=== PATIENT | male | born 1975 | race Caucasian/White ===

== ENCOUNTER 2018-10-20 22:27 | Observation (INO) ==
[2018-10-20] MEDS ORDERED: IOPAMIDOL 100 ML BOTTLE IV ONE (22:28)
[2018-10-20] MEDS ORDERED: HYDROmorphone 2 MG/ML VIAL IV PRN (23:13)
[2018-10-20] MEDS ORDERED: KETOROLAC 30 MG/ML VIAL IV ONE (23:13)
[2018-10-20] MEDS ORDERED: 0.9 % SODIUM CHLORIDE 1,000 ML IV ONE (23:13)
[2018-10-20 23:47] LABS: Basophils # (Auto) 0 K/mcL (0.0-0.3); Basophils % (Auto) 0.3 % (0.0-2.0); Eosinophils # (Auto) 0.2 K/mcL (0.0-0.7); Eosinophils % (Auto) 1.2 % (0.0-7.0); Granulocytes % (Auto) 70.9 % (38.0-78.0); Hemoglobin 15.9 g/dL (13.5-16.5); Lymphocytes # (Auto) 3.5 K/mcL (1.5-4.8); Lymphocytes % (Auto) 21.8 % (15.5-49.0); Mean Corpuscular HGB Conc 32.4 g/dL (31.0-36.0); Monocytes # (Auto) 0.9 K/mcL (0.1-0.9); Monocytes % (Auto) 5.8 % (1.0-12.0); Platelet Count 295 K/mcL (140-440); Red Cell Distribution Width 12.8 % (11.5-14.5); WBC 15.9 K/mcL (4.5-11.0)
[2018-10-21 00:08] LABS: ALT/SGPT 68 U/l (0-40); AST/SGOT 37 U/l (0-37); Albumin 3.8 gm/dL (3.2-5.2); Albumin/Globulin Ratio 1.1 (1.0-2.3); Alkaline Phosphatase 103 U/L (39-117); Bilirubin,Total 0.6 mg/dL (0.0-1.0); Blood Urea Nitrogen 22 mg/dl (6-20); C-Reactive Protein 1.8 mg/dl (0.0-0.8); Calcium 9.1 mg/dl (8.6-10.4); Carbon Dioxide 21 mmol/L (22-30); Chloride 96 mmol/L (96-108); Globulin 3.6 gm/dL (2.2-3.7); Glomerular Filtration Rate 93; Glucose 395 mg/dL (70-105); Potassium 4.3 mmol/L (3.3-5.1); Sodium 131 mmol/L (133-145)
[2018-10-21 00:52] LABS: Erythrocyte Sedimentation Rate 20 mm/hr (0-15)
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
[2018-10-21] MEDS ORDERED: VANCOMYCIN 1,000 MG in 0.9 % SODIUM CHLORIDE 250 ML IV ONE (00:58)
[2018-10-21] MEDS ORDERED: LEVOFLOXACIN 500 MG/100 ML BAG IV ONE (00:58)
[2018-10-21] MEDS ORDERED: 0.9 % SODIUM CHLORIDE 1,000 ML IV ONE (00:59)
[2018-10-21] MEDS ORDERED: INSULIN REGULAR, HUMAN 1 UNIT/0.01 ML UNIT IV ONE (00:59)
[2018-10-21 01:44] LABS: Appearance,Urine CLEAR; Bacteria,Urine 0 /hpf (0); Bilirubin,Urine NEG (NEG); Color,Urine YELLOW; Culture Indicated,Urine NO; Glucose,Urine (UA) >=500 mg/dL (NEG); Ketones,Urine NEG (NEG); Leukocyte Esterase,Urine NEG /uL (NEG); Mucus,Urine FEW /hpf (0); Nitrate,Urine NEG (NEG); Protein,Urine NEG (NEG); Urine Blood NEG mg/dL (<0.03); Urine RBC < 1 /hpf (0-1); Urine Squamous Epithelial Cell < 1 /hpf (0-4); Urine WBC 1 /hpf (0-4); Urobilinogen,Urine NEG (NEG)
[2018-10-21] MEDS ORDERED: 0.9 % SODIUM CHLORIDE 1,000 ML IV SCH ×4 (02:30→11:44)
[2018-10-21] MEDS ORDERED: NALOXONE HCL 0.4 MG/ML VIAL IV PRN ×2 (02:57→11:44)
[2018-10-21] MEDS ORDERED: ONDANSETRON 4 MG/2 ML VIAL IV PRN ×2 (02:57→11:44)
[2018-10-21] MEDS ORDERED: oxyCODONE/APAP 5/325MG TABLET PO PRN ×2 (02:57→11:44)
[2018-10-21] MEDS ORDERED: ACETAMINOPHEN 325 MG TABLET PO PRN ×3 (03:06→11:44)
[2018-10-21] MEDS: CEFEPIME 1 GM VIAL IV SCH ×3 (05:55→21:24)
--- NOTE | 2018-10-21 08:44 | XRay Report ---
HISTORY: Leukocytosis and sepsis FINDINGS: The lungs are clear and normally expanded. There is no pleural effusion or adenopathy. The heart size and pulmonary vasculature are normal. Patient has stimulator electrode wires in the cervical spine. The power pack is in the posterior lateral aspect of the right upper abdomen. There is a mild kyphosis and minor arthritis in the thoracic spine. IMPRESSION: No evidence of pneumonia or acute abnormality Interpreted and Authenticated by: Luis A Aguilar 10/21/18
--- NOTE | 2018-10-21 08:45 | Internal Med History&Physical ---
Medical - H&P: HPI Patient information: Note initiated : 10/21/18 at 8:42 am Service Date, if different from initiated Date: [] Patient: Kurtis Roa a 43 y/o M admitted on 10/21/18 for low back pain. Chief Complaint: [] History of present illness: Mr. Roa is a 43 year old M Presents to the ED with acute on chronic back pain with radiation down to his right side to feet. Is taking naproxen and muscle relaxer but is been off narcotics for several months. He felt that this back pain increased after seizure 3 days ago. No bowel or bladder incontinence. 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 He was treated for pain control in the ED. However, because of his tachycardia and and hypotension, apparently his systolic went down to the 90s but I do not see that recorded. Because of this there is concern for infection possibly discitis and thus admission was requested for further evaluation. ESR was low and procalcitonin was low. MRI unavailable and a CT lumbar with contrast was ordered which did not show any osteo-or abscess. His pain is a sharp shooting pain down the right lateral aspect of his legs to his toe Toradol and Dilaudid helped in the ED. States he felt a little bit feverish off and on but otherwise no complaints. Patient states that he gets complex migraines with seizure-like activity and this usually happens in the middle the night, this happened 3 nights ago when he woke up he had increased back pain. Follows with Dr. Colunga for his migraines. His blood glucose was elevated but he had ice cream several hours prior to the ED visit Review of Systems: Pertinent positives as above. Denies headache/chills/nausea/vomiting/chest or abdominal pain/cough/dyspnea/diarrhea. Remaining 10 point review of system reviewed negative Medical - H&P: PMH Medical history: Medical History (Last Updated 05/23/18 @ 13:55 by Bethany May) Hypothyroidism (Chronic) Vitamin D deficiency (Chronic) Neuropathy (Chronic) Back pain (Chronic) Neck pain (Chronic) Right hand weakness (Chronic) Lumbar disc herniation (Chronic) Thoracic disc herniation (Chronic) Herniated cervical disc (Chronic) Traumatic brain injury (Chronic) Hypertension (Chronic) Depression (Chronic) Convulsions/seizures (Chronic) Diabetes mellitus, type II (Chronic) Contusion (Acute) Migraine headache with aura (Chronic) Toothache (Chronic) Oral thrush (Acute) Strain of thoracic region (Acute) Degenerative disc disease, thoracic (Acute) Past Surgical History (Last Updated 05/23/18 @ 13:59 by Bethany May) Cervical spine fusion Facial fracture repair Stimulator Family History (Last Updated 05/23/18 @ 13:57 by Bethany May) Mother Anemia Diabetes Family/Other Colon cancer, Onset Age: 43 Grandmother History of back surgery Grandfather Heart valve disorder Social History (Last Updated 05/23/18 @ 13:58 by Bethany May) Uses a cane and occasionally a wheelchair Medical - H&P: Meds Home Medications Medication Instructions Recorded Confirmed Type Levothyroxine 50 mcg PO DAILY 01/10/15 10/21/18 History Methocarbamol [Robaxin] 1 - 2 tab PO Q8H PRN #60 tablet 04/26/16 10/21/18 Rx Acetaminophen W/Codeine #3 04/22/18 History [Tylenol #3] Atorvastatin [Lipitor] 20 mg PO HS 04/22/18 10/21/18 History Bisacodyl [Dulcolax] 5 mg PO BID PRN 04/22/18 10/21/18 History Fish Oil 360 mg PO DAILY 04/22/18 10/21/18 History Lisinopril [Zestril] 10 mg PO DAILY 04/22/18 10/21/18 History Multi [place] 04/22/18 History Naproxen 04/22/18 History Omeprazole [PriLOSEC] 20 mg PO BIDAC 04/22/18 10/21/18 History SUMAtriptan SUCCINATE 04/22/18 History Sennosides 8.6 mg PO BID 04/22/18 10/21/18 History Verapamil HCl 440 mg PO DAILY 04/22/18 10/21/18 History glipiZIDE 5 mg PO HS 04/22/18 10/21/18 History Cholecalciferol (Vitamin D3) 50,000 unit PO DAILY 10/21/18 10/21/18 History [Vitamin D3] Docusate Sodium [Stool Softener] 250 mg PO BID 10/21/18 10/21/18 History Gabapentin 600 mg PO HS 10/21/18 10/21/18 History Insulin Glargine,Hum.rec.anlog 20 unit SQ DAILY 10/21/18 10/21/18 History [Lantus Solostar] Percocet 7.5-325 mg Tablet 7.5 mg PO Q6HP PRN 10/21/18 10/21/18 History glipiZIDE [Glucotrol] 10 mg PO DAILY 10/21/18 10/21/18 History sitaGLIPtin [Januvia] 100 mg PO DAILY 10/21/18 10/21/18 History Allergies Allergy/AdvReac Type Severity Reaction Status Date / Time Penicillins Allergy Severe Anaphylaxis Verified 10/20/18 22:32 Erythromycin Base Allergy Hives Verified 10/20/18 22:32 Medical - H&P: Exam - Constitutional Vitals: Temp Pulse Resp BP Pulse Ox 98.2 F 87 16 114/75 95 10/21/18 02:38 10/21/18 08:16 10/21/18 05:03 10/21/18 08:16 10/21/18 08:16 Exam: General: Alert, Awake, No acute Distress Eyes/N/T: EOMI, PEERL, Head/Neck: neck supple, normocephalic atraumatic CV: RRR, No murmurs, normal s1/s2 Pulm: Clear b/l, no wheezing/rhonchi/rales Abd: soft, nontender, +BS x4 Ext: no clubbing/cyanosis/edema Neuro: Alert, no focal deficits, moves all extremities, CN 2-12 grossly intact, symmetrical strength b/l upper/lower, decreased sensation in his legs more on the right which is typical for him skin: warm/dry Medical - H&P: Reslt - Labs CBC & Chem 7: 10/20/18 23:20 10/20/18 23:20 Labs: Short CBC 10/20/18 Range/Units 23:20 WBC 15.9 H (4.5-11.0) K/mcL Hgb 15.9 (13.5-16.5) g/dL Hct 49.0 (41.0-55.0) % Plt Count 295 (140-440) K/mcL BMP 10/20/18 23:20 Sodium 131 L Potassium 4.3 Chloride 96 Carbon Dioxide 21 L BUN 22 H Creatinine 1.0 Glucose 395 H Calcium 9.1 Liver Function 10/20/18 Range/Units 23:20 Total Bilirubin 0.6 (0.0-1.0) mg/dL AST 37 (0-37) U/l ALT 68 H (0-40) U/l Alkaline Phosphatase 103 (39-117) U/L Albumin 3.8 (3.2-5.2) gm/dL Urine 10/21/18 Range/Units 00:30 Urine Color Yellow Urine Appearance Clear Urine pH 5.0 (5.0-9.0) Ur Specific [place] 1.040 H (1.000-1.035) Urine Protein Neg (NEG) mg/dL Urine Glucose (UA) >=500 A (NEG) mg/dL Medical - H&P: A/P - Narrative A/P Narrative: A: *Intractable low back pain, acute on chronic with right radiculopathy: Secondary to complex migraine seizure-like activity -Infectious work-up negative; manual differential no bands, low PCT/ESR, afebrile, CT with contrast of the spine no evidence of abscess or osteo- *History of complex migraines with seizure-like activity: *DM w/Hyperglycemia: 395 on admit from dietary noncompliance during the evening *Hyponatremia: *Volume depletion: *Neuropathy: *Hypothyroidism: *HTN/HLD: *GERD: * P: -Pain control/muscle relaxers/toradol/lidoderm -PT/OT - -Continue home blood pressure medications -Continue home glipizide with sliding scale and clarify home insulin -Continue home levothyroxine -ppx: Lovenox/home PPI
--- NOTE | 2018-10-21 08:50 | Cat Scan Report ---
CLINICAL INFORMATION: Low back pain radiating to right flank COMPARISON: 09/13/12 TECHNIQUE: The abdomen was imaged without oral or IV contrast, scanning from the diaphragm to the symphysis pubis. Sagittal and coronal reformats were created. Radiation exposure was limited using dose reduction technology. FINDINGS: There is mild dependent atelectasis posteriorly in the right lower lobe. Liver is mildly enlarged and there is mild generalized fatty infiltration. There is no evidence of a mass. The gallbladder is contracted but there are no stones and no apparent thickening of the wall. The bile ducts are nondilated. The spleen is normal in size and homogeneous. There is no evidence of a mass or inflammation the pancreas. The adrenals and kidneys are normal. There is no evidence of a kidney stone or hydronephrosis. The aorta is normal in caliber and there is no plaque formation. There are a few very small lymph nodes at the rather than mesentery which are 6 mm smaller area The bowel gas pattern is normal except for a few small scattered noninflamed diverticula in the sigmoid colon. The appendix is noninflamed. The urinary bladder is normally distended and appears normal. Prostate and seminal vesicles also appear normal. Comparison with the prior exam shows no significant change. IMPRESSION: Hepatomegaly with fatty infiltration of the liver. No acute abnormality Interpreted and Authenticated by: Luis A Aguilar 10/21/18
--- NOTE | 2018-10-21 08:55 | Cat Scan Report ---
CLINICAL INFORMATION: Severe low back pain and leukocytosis COMPARISON: X-ray on 10/15/17 TECHNIQUE: The spine was imaged in axial plane without contrast. Sagittal and coronal reformats were created. The radiation exposure was limited using dose reduction technology. FINDINGS: Patient has a transitional vertebra with six lumbar vertebral bodies. There is a hyperplastic left transverse process of L6 which forms a pseudoarthrosis with the top of the sacrum. The vertebral bodies are normal in height and alignment. There is no evidence of osteomyelitis and no paraspinal mass or abscess are present. The L6 S1 disc is normal. There is mild arthritis in left facet. L5 six disc is normal in height and there is a subtle broad-based posterior bulge. This is not causing stenosis. The remainder the disc spaces are normal. The central canal and neural foramina are normal in caliber. IMPRESSION: No evidence of fracture, infection or herniated disc Six lumbar vertebra Small bulge at L5-6 Interpreted and Authenticated by: Luis A Aguilar 10/21/18
--- NOTE | 2018-10-21 09:18 | Cat Scan Report ---
History: Severe low back pain, evaluate for abscess TECHNIQUE: The spine was imaged without contrast from the lower thoracic spine to the sacrum. Sagittal and coronal reformats were created. The radiation exposure was limited using dose reduction technology. There are six lumbar vertebra. The vertebral bodies are normal in height and alignment. There is no bone erosion, fracture or destructive lesion. No paraspinal mass or inflammation are present. Small posterior bulge is present at L5 -6 and there is a hyperplastic left transverse process of L6. Comparison with the prior exam done on 10/20/18 shows no change. There is no evidence of central canal or neural foraminal stenosis. Mild arthritis is present in the left facet at L6 S1. IMPRESSION: No evidence of infection or acute spinal injury Interpreted and Authenticated by: Luis A Aguilar 10/21/18
[2018-10-21] MEDS: INSULIN GLARGINE, HUMAN 1 UNIT/0.01 ML SQ SCH ×2 (09:29→09:30)
[2018-10-21 10:03] LABS: Lymphocytes % 29 % (15-49); Monocytes % (Manual) 2 % (1-12); Platelet Estimate NORMAL (NORMAL); RBC Morphology NORMAL (NORMAL); Segmented Neutrophils % 69 % (38-78)
[2018-10-21] MEDS ORDERED: KETOROLAC 30 MG/ML VIAL IV PRN (11:44)
[2018-10-21] MEDS ORDERED: MAGNESIUM HYDROXIDE 30 ML ORAL.SUSP PO PRN (11:44)
[2018-10-21] MEDS ORDERED: DEXTROSE 50% 50 ML VIAL IV PRN (11:44)
[2018-10-21] MEDS ORDERED: BISACODYL 5 MG TABLET PO PRN (11:44)
[2018-10-21] MEDS ORDERED: HYDROmorphone 2 MG/ML VIAL IV PRN (11:44)
[2018-10-21] MEDS ORDERED: DEXTROSE 31 GM ORAL.SUSP PO PRN (11:44)
[2018-10-21] MEDS: INSULIN LISPRO 1 UNIT/0.01 ML UNIT SQ SCH ×3 (12:14→21:18)
[2018-10-21] MEDS: LIDOCAINE PATCH TOPICAL SCH (12:14)
[2018-10-21] MEDS ORDERED: NAPROXEN 250 MG TABLET PO PRN (12:54)
[2018-10-21] MEDS ORDERED: SUMAtriptan SUCCINATE 50 MG TABLET PO PRN (13:00)
--- NOTE | 2018-10-21 14:25 | Discharge Summary ---
Medical - DS: Prov Patient information: Note initiated : 10/21/18 at 2:17 pm Service Date, if different from initiated Date: [] Patient: Kurtis Roa 43 y/o M admitted on 10/21/18 for low back pain. Chief Complaint: [] Date of admission: 10/21/18 08:20 Discharge date: 10/22/18 Primary care physician: Unknown Unknown Consults: 10/21/18 Consult to Physician [CONS] Stat Comment: Consulting Provider: Seth Solis Reason For Exam: Physician to Consult Medical - DS: Meds - Discharge Medications Prescriptions: Lidocaine [Lidoderm] 1 patch TOPICAL DAILY@1000 #5 patch Active and Home Medications: Home Medications Levothyroxine 50 mcg PO DAILY 01/10/15 [History Confirmed 10/21/18 Last Taken 10/20/18] Methocarbamol [Robaxin] 1 - 2 tab PO Q8H PRN #60 tablet 04/26/16 [Rx Confirmed 10/21/18 Last Taken 10/20/18] Acetaminophen W/Codeine #3 [Tylenol #3] 1 tab PO Q6HP PRN 04/22/18 [History Confirmed 10/21/18 Last Taken 10/06/18] Atorvastatin [Lipitor] 20 mg PO HS 04/22/18 [History Confirmed 10/21/18 Last Taken 10/20/18] Bisacodyl [Dulcolax] 5 mg PO BID PRN 04/22/18 [History Confirmed 10/21/18 Last Taken 10/20/18] Fish Oil 360 mg PO DAILY 04/22/18 [History Confirmed 10/21/18 Last Taken 10/20/18] Lisinopril [Zestril] 10 mg PO DAILY 04/22/18 [History Confirmed 10/21/18 Last Taken 10/20/18] Multi [place] 04/22/18 [History Last Taken 10/20/18] Omeprazole [PriLOSEC] 20 mg PO BIDAC 04/22/18 [History Confirmed 10/21/18 Last Taken 10/20/18] SUMAtriptan SUCCINATE 30 - 80 mg PO PRN PRN 04/22/18 [History Confirmed 10/21/18 Last Taken 10/20/18] Sennosides 8.6 mg PO BID 04/22/18 [History Confirmed 10/21/18 Last Taken 04/21/18] Verapamil HCl 440 mg PO DAILY 04/22/18 [History Confirmed 10/21/18 Last Taken 10/20/18] glipiZIDE 5 mg PO HS 04/22/18 [History Confirmed 10/21/18 Last Taken 10/20/18] Cholecalciferol (Vitamin D3) [Vitamin D3] 50,000 unit PO DAILY 10/21/18 [History Confirmed 10/21/18 Last Taken 10/14/18] Docusate Sodium [Stool Softener] 250 mg PO BID 10/21/18 [History Confirmed 10/21/18 Last Taken Unknown] Gabapentin 600 mg PO HS 10/21/18 [History Confirmed 10/21/18 Last Taken Unknown] Insulin Glargine,Hum.rec.anlog [Lantus Solostar] 20 unit SQ DAILY 10/21/18 [History Confirmed 10/21/18 Last Taken Unknown] Naproxen [Naprosyn] 250 - 500 mg PO BIDCC PRN 10/21/18 [History Confirmed 10/21/18 Last Taken Unknown] SUMAtriptan SUCC/NAPROXEN SOD [Treximet 10-60 mg Tablet] 1 tab PO PRN PRN 10/21/18 [History Confirmed 10/21/18 Last Taken Unknown] glipiZIDE [Glucotrol] 10 mg PO DAILY 10/21/18 [History Confirmed 10/21/18 Last Taken Unknown] sitaGLIPtin [Januvia] 100 mg PO DAILY 10/21/18 [History Confirmed 10/21/18 Last Taken Unknown] Medical - DS: Hosp Hospital course: Mr. Roa is a 43 year old M Mr. Roa is a 43 year old M Presents to the ED with acute on chronic back pain with radiation down to his right side to feet. Is taking naproxen and muscle relaxer but is been off narcotics for several months. He felt that this back pain increased after seizure 3 days ago. No bowel or bladder incontinence. 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 He was treated for pain control in the ED. However, because of his tachycardia and and hypotension, apparently his systolic went down to the 90s but I do not see that recorded. Because of this there is concern for infection possibly discitis and thus admission was requested for further evaluation. ESR was low and procalcitonin was low. MRI unavailable and a CT lumbar with contrast was ordered which did not show any osteo-or abscess. His pain is a sharp shooting pain down the right lateral aspect of his legs to his toe Toradol and Dilaudid helped in the ED. States he felt a little bit feverish off and on but otherwise no complaints. Patient states that he gets complex migraines with seizure-like activity and this usually happens in the middle the night, this happened 3 nights ago when he woke up he had increased back pain. Follows with Dr. Colunga for his migraines. His blood glucose was elevated but he had ice cream several hours prior to the ED visit Infectious work-up negative imaging no concerning findings for infection 10/22 Feeling better. Labs unremarkable. Patient stable for discharge Discharge diagnosis: Acute on chronic back pain with radiculopathy diabetes complex migraines vo Secondary discharge diagnosis: Hyponatremia volume depletion neuropathy hypothyroidism hypertension GERD - Time Spent with Patient Total time spent providing and/or coordinating discharge services: Greater than 30 minutes Medical - DS: Exam - Constitutional Vitals: Vital Signs Temp Pulse Pulse Resp BP BP Pulse Ox 10/21/18 12:00 98.0 F 78 18 105/66 96 10/21/18 08:20 98.6 F 89 20 125/91 96 10/21/18 08:16 87 114/75 95 10/21/18 07:31 80 109/73 95 10/21/18 07:24 85 121/78 96 10/21/18 06:01 86 128/86 95 10/21/18 05:16 87 121/93 95 10/21/18 05:03 86 16 117/75 94 10/21/18 04:31 92 H 117/75 95 10/21/18 03:46 101 H 118/73 96 10/21/18 03:19 91 H 96 10/21/18 03:15 94 H 16 104/71 96 10/21/18 03:01 94 H 104/71 94 10/21/18 02:44 103 H 103/77 95 10/21/18 02:38 98.2 F 99 H 16 95 10/21/18 02:23 104 H 95 10/21/18 02:16 100 H 117/72 96 10/21/18 02:04 101 H 114/72 96 10/21/18 02:01 102 H 18 114/72 95 10/21/18 01:35 101 H 18 119/79 95 10/21/18 01:31 101 H 106/78 99 10/21/18 01:16 72 127/96 100 10/21/18 01:01 74 128/84 99 10/21/18 00:47 75 125/83 99 10/20/18 22:28 98.1 F 122 H 20 107/65 94 Intake and Output 10/21/18 10/21/18 10/21/18 05:59 13:59 21:59 Intake Total 2350 1000 Balance 2350 1000 Intake: IV 2350 1000 Sodium Chloride 0.9% 1,000 ml @ 2000 1000 20 mls/hr IV .Q24H JAVON Rx#: [id number] Vancomycin 1,000 mg In Sodium 250 Chloride 0.9% 250 ml @ 250 mls/ hr IV ONCE ONE Rx#:[id number] Other: Weight 129.274 kg 129.274 kg Patient Weight 10/22/18 05:59 Weight 129.274 kg Medical - DS: Data Labs on day of discharge: Labs from last 24 hours 10/21/18 10/21/18 10/21/18 01:07 01:07 01:07 WBC RBC Hgb Hct MCV MCH MCHC RDW Plt Count MPV Gran % Lymph % (Auto) [place] % (Auto) Eos % (Auto) Baso % (Auto) Gran # Lymph # (Auto) [place] # (Auto) Eos # (Auto) Baso # (Auto) Total Counted 100 Seg Neutrophils % 69 Band Neutrophils % Not Reportable Lymphocytes % 29 Monocytes % (Manual) 2 Platelet Estimate Normal RBC Morphology Normal ESR VBG Lactic Acid 2.0 Sodium Potassium Chloride Carbon Dioxide Anion Gap BUN Creatinine GFR Calculation Glucose Calcium Total Bilirubin AST ALT Alkaline Phosphatase C-Reactive Protein Total Protein Albumin Globulin Albumin/Globulin Ratio Procalcitonin < 0.05 Urine Color Urine Appearance Urine pH Ur Specific [place] Urine Protein Urine Glucose (UA) Urine Ketones Urine Occult Blood Urine Nitrate Urine Bilirubin Urine Urobilinogen Ur Leukocyte Esterase Urine RBC Urine WBC Ur Squamous Epith Cells Urine Bacteria Urine Mucus Ur Culture Indicated? 10/21/18 10/20/18 10/20/18 00:30 23:20 23:20 WBC 15.9 H RBC 5.90 Hgb 15.9 Hct 49.0 MCV 83.0 MCH 26.9 MCHC 32.4 RDW 12.8 Plt Count 295 MPV 10.0 Gran % 70.9 Lymph % (Auto) 21.8 [place] % (Auto) 5.8 Eos % (Auto) 1.2 Baso % (Auto) 0.3 Gran # 11.3 H Lymph # (Auto) 3.5 [place] # (Auto) 0.9 Eos # (Auto) 0.2 Baso # (Auto) 0 Total Counted Seg Neutrophils % Band Neutrophils % Lymphocytes % Monocytes % (Manual) Platelet Estimate RBC Morphology ESR 20 H VBG Lactic Acid Sodium 131 L Potassium 4.3 Chloride 96 Carbon Dioxide 21 L Anion Gap 14.0 BUN 22 H Creatinine 1.0 GFR Calculation 93 Glucose 395 H Calcium 9.1 Total Bilirubin 0.6 AST 37 ALT 68 H Alkaline Phosphatase 103 C-Reactive Protein 1.8 H Total Protein 7.4 Albumin 3.8 Globulin 3.6 Albumin/Globulin Ratio 1.1 Procalcitonin Urine Color Yellow Urine Appearance Clear Urine pH 5.0 Ur Specific [place] 1.040 H Urine Protein Neg Urine Glucose (UA) >=500 A Urine Ketones Neg Urine Occult Blood Neg Urine Nitrate Neg Urine Bilirubin Neg Urine Urobilinogen Neg Ur Leukocyte Esterase Neg Urine RBC < 1 Urine WBC 1 Ur Squamous Epith Cells < 1 Urine Bacteria 0 Urine Mucus Few Ur Culture Indicated? No Medical - DS: A/P - Patient/Caregiver Discharge Instructions Activity: increase activity as tolerated Diet: Consistent Carbohydrate Additional Instructions: Follow-up with PCP in 3 to 7 days Prescriptions: Lidocaine [Lidoderm] 1 patch TOPICAL DAILY@1000 #5 patch - Follow up Plan Follow up with: Unknown,Unknown [Referring] - Disposition: Home, Self-Care Prognosis: Fair Rehab Potential: Fair Overall status at discharge: patient is back to baseline
[2018-10-21] MEDS: 0.9 % SODIUM CHLORIDE 10 ML SYRINGE IV SCH ×2 (16:50→21:19)
[2018-10-21] MEDS: ACETAMINOPHEN W/CODEINE #3 1 TABLET PO PRN (16:57)
[2018-10-21] MEDS ORDERED: ATORVASTATIN 20 MG TABLET PO SCH (21:00)
[2018-10-21] MEDS ORDERED: GABAPENTIN 300 MG CAPSULE PO SCH (21:00)
[2018-10-21] MEDS: SENNOSIDES 1 TABLET PO SCH (21:18)
[2018-10-21] MEDS: DOCUSATE SODIUM 100 MG CAPSULE PO SCH (21:18)
[2018-10-21] MEDS: METHOCARBAMOL 1,000 MG/10 ML VIAL IV PRN (21:18)
[2018-10-21] MEDS: FAMOTIDINE 20 MG TABLET PO SCH (21:18)
[2018-10-22] MEDS: ACETAMINOPHEN W/CODEINE #3 1 TABLET PO PRN ×2 (00:08→05:57)
[2018-10-22 04:59] LABS: Basophils # (Auto) 0 K/mcL (0.0-0.3); Basophils % (Auto) 0.3 % (0.0-2.0); Eosinophils # (Auto) 0.2 K/mcL (0.0-0.7); Eosinophils % (Auto) 2.8 % (0.0-7.0); Granulocytes % (Auto) 62.1 % (38.0-78.0); Hematocrit 43.7 % (41.0-55.0); Hemoglobin 14.3 g/dL (13.5-16.5); Lymphocytes # (Auto) 2.4 K/mcL (1.5-4.8); Lymphocytes % (Auto) 29.3 % (15.5-49.0); Mean Cell Volume 83.1 fL (80.0-100.0); Mean Corpuscular HGB Conc 32.7 g/dL (31.0-36.0); Mean Platelet Volume 9.9 fL (7.4-10.4); Monocytes # (Auto) 0.5 K/mcL (0.1-0.9); Monocytes % (Auto) 5.5 % (1.0-12.0); Platelet Count 194 K/mcL (140-440); RBC 5.26 M/mcL (4.50-5.90); WBC 8.2 K/mcL (4.5-11.0)
[2018-10-22 05:40] LABS: ALT/SGPT 77 U/l (0-40); AST/SGOT 61 U/l (0-37); Albumin 3.6 gm/dL (3.2-5.2); Albumin/Globulin Ratio 1.1 (1.0-2.3); Alkaline Phosphatase 70 U/L (39-117); Bilirubin,Direct < 0.2 mg/dL (0.0-0.3); Bilirubin,Total 0.7 mg/dL (0.0-1.0); Blood Urea Nitrogen 11 mg/dl (6-20); Calcium 9.4 mg/dl (8.6-10.4); Carbon Dioxide 24 mmol/L (22-30); Chloride 104 mmol/L (96-108); Gamma Glutamyl Transpeptidase 40 U/L (8-61); Globulin 3.2 gm/dL (2.2-3.7); Glomerular Filtration Rate 111; Glucose 181 mg/dL (70-105); Lactate Dehydrogenase 161 U/L (94-250); Magnesium 1.9 mg/dL (1.6-2.5); Phosphorous 3.2 mg/dL (2.7-4.5); Potassium 4.3 mmol/L (3.3-5.1); Sodium 140 mmol/L (133-145); Triglycerides 155 mg/dl (<150); Uric Acid 4.6 mg/dL (2.5-8.0)
[2018-10-22] MEDS: CEFEPIME 1 GM VIAL IV SCH (05:57)
[2018-10-22] MEDS: 0.9 % SODIUM CHLORIDE 10 ML SYRINGE IV SCH (05:57)
[2018-10-22] MEDS ORDERED: LEVOTHYROXINE 50 MCG TABLET PO SCH (07:30)
[2018-10-22] MEDS: INSULIN LISPRO 1 UNIT/0.01 ML UNIT SQ SCH (07:59)
[2018-10-22] MEDS: METHOCARBAMOL 1,000 MG/10 ML VIAL IV PRN (08:52)
[2018-10-22] MEDS: LIDOCAINE PATCH TOPICAL SCH (08:52)
[2018-10-22] MEDS: FAMOTIDINE 20 MG TABLET PO SCH (08:53)
[2018-10-22] MEDS: DOCUSATE SODIUM 100 MG CAPSULE PO SCH (08:54)
[2018-10-22] MEDS: SENNOSIDES 1 TABLET PO SCH (08:54)
[2018-10-22] MEDS ORDERED: LISINOPRIL 10 MG TABLET PO SCH (09:00)
[2018-10-22] MEDS ORDERED: ENOXAPARIN 40 MG/0.4 ML SYRINGE SQ SCH (09:00)
[2018-10-22] MEDS ORDERED: INSULIN GLARGINE, HUMAN 1 UNIT/0.01 ML SQ SCH (09:00)
[2018-10-22] MEDS ORDERED: sitaGLIPtin 100 MG TABLET PO SCH (09:00)
[2018-10-22] MEDS ORDERED: VERAPAMIL PO SCH (09:00)
[2018-10-22] MEDS ORDERED: glipiZIDE 5 MG TABLET PO SCH ×2 (12:00→21:00)
== END 2018-10-22 10:00 | disposition home or self-care (01) ==
LOC: ED 22:27 → ICU 10-21 08:20 → INTOOBSV 10-21 08:20 → ICU 10-21 08:25
PROVIDERS: ADMIT Internal Medicine; ATTEND Internal Medicine